=== PATIENT | male | born 2005 | race Two or more races ===

== ENCOUNTER 2025-03-26 19:56 | Emergency (ER) | payer OTHER, SELFPAY ==
[~2025-03-26] VITALS: Ht 180.3 cm; Wt 88.9 kg
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
[2025-03-26 22:41] VITALS: BP 133/84; TEMP 98.2
[2025-03-26 22:56] VITALS: PULSE 89; RESP 16; O2SAT 95
== END 2025-03-26 23:11 | disposition home or self-care (01) ==
LOC: ER 19:56
DX: S13.4XXA Sprain of ligaments of cervical spine, initial encounter (principal); S33.5XXA Sprain of ligaments of lumbar spine, initial encounter; S29.012A Strain of muscle and tendon of back wall of thorax, initial encounter; V89.2XXA Person injured in unspecified motor-vehicle accident, traffic, initial encounter; Y93.89 Activity, other specified; Y92.488 Other paved roadways as the place of occurrence of the external cause; Y99.8 Other external cause status
CPT/HCPCS: 72040; 72070